=== PATIENT | female | born 1995 | race Caucasian/White ===

== ENCOUNTER 2017-05-23 06:32 | Emergency (ER) | payer OTHER ==
[2017-05-23] MEDS ORDERED: DEXAMETHASONE SOD PHOS INJ 10 MG/1 ML VIAL IV ONE (07:07)
--- NOTE | 2017-05-23 07:13 | ER Document Report ---
ED Allergic Reaction - General Chief Complaint: Allergy Symptoms Stated Complaint: ALLERGIES Time Seen by Provider: 05/23/17 07:07 Information source: Patient, Friend Notes: Patient is a 21-year-old white female comes emergency room complaining of allergic reaction. Patient states that approximately 4 years ago she developed allergies to cats. She states today that she was at a friend's house who had a And the cat slept with her. She woke up this morning feeling a little short of breath and itchy around the eyes. She is complaining mostly of puffiness and itching of the eyes. She denies any rash. She denies any difficulty swallowing or talking. No swelling of the lips. Patient also states that when this occurs she has had in the past the steroid shot and Benadryl and the stomach pill, the Benadryl and stomach pill never worked for her. She states that the only thing that works is the steroid shot. Patient also states that when she has itchy puffy eyes if she does not get the steroids relatively soon then it turns into a full-blown allergic reaction and is much more difficult to get under control. - HPI Patient complains to provider of: Allergic reaction Onset: This morning Onset/Duration: Sudden, Worse Quality of pain: No pain Severity: Moderate Pain Level: 3 Identified cause: Yes Other exposure: Other - [place] Skin rash / itching: Facial Swelling: Face Trouble swallowing / speaking: Mild Associated symptoms: None Similar symptoms previously: Yes Recently seen / treated by doctor: No - Related Data Allergies/Adverse Reactions: No Known Allergies Allergy (Unverified 05/23/17 06:36) Past Medical History - General Information source: Patient, Friend Last Menstrual Period: May 04, 2017 - Social History Smoking Status: Current Some Day Smoker Cigarette use (# per day): Yes - Occasional Chew tobacco use (# tins/day): No Smoking Education Provided: Yes Frequency of alcohol use: Occasional Drug Abuse: None Lives with: Family Family History: Reviewed & Not Pertinent Patient has suicidal ideation: No Patient has homicidal ideation: No Renal/ Medical History: Denies: Hx Peritoneal Dialysis Review of Systems - Review of Systems Constitutional: No symptoms reported EENT: Other - Puffiness around eyes Cardiovascular: No symptoms reported Respiratory: No symptoms reported, See HPI Gastrointestinal: No symptoms reported Genitourinary: No symptoms reported Female Genitourinary: No symptoms reported Musculoskeletal: No symptoms reported Skin: No symptoms reported Hematologic/Lymphatic: No symptoms reported Neurological/Psychological: No symptoms reported -: Yes All other systems reviewed and negative Physical Exam - Vital signs Vitals: Temp Pulse Resp BP Pulse Ox 98.5 F 85 14 126/80 H 100 05/23/17 06:42 05/23/17 06:42 05/23/17 06:42 05/23/17 06:42 05/23/17 06:42 Interpretation: Normal - General General appearance: Appears well - HEENT Head: Normocephalic, Atraumatic Eyes: Periorbital edema Conjunctiva: Injected Cornea: Normal Extraocular movements intact: Yes Eyelashes: Normal Pupils: PERRL External canal: Normal Tympanic membrane: Normal Nasal: Normal Mouth/Lips: Normal. No: Angioedema, Caries, Dental fracture, Laceration, Lesions, Other Mucous membranes: Normal, Moist Pharynx: Normal, Other - Examination had an upper airway showed nasal mucosa to be mildly erythematous and edematous with bilateral nasal congestion noted slight amount of rhinorrhea bilaterally noted as well. Examination of the facial features show patient has some puffiness under the eyes and the lower lids. Slight swelling of the upper lids. Vision is unaffected at this time. Examination of the oral cavity shows posterior pharynx to be normal in appearance no erythema no angioedema of the tongue or lips noted. Airways patent.. No: Blood in hypopharynx, Erythema, Exudate, Peritonsillar abscess, Post nasal drainage, Retropharyngeal abscess, Tonsillar hypertrophy, Uvular edema, Potential airway comprom. Neck: Normal - Respiratory Respiratory status: No respiratory distress Chest status: Nontender Breath sounds: Normal, Other - Examination of the lungs show patient has bilateral breath sounds breath sounds are increased and clear to auscultation. Chest palpation: Normal - Cardiovascular Rhythm: Regular Heart sounds: Normal auscultation Murmur: No - Extremities General upper extremity: Normal inspection, Normal ROM General lower extremity: Normal inspection, Normal ROM - Neurological Neuro grossly intact: Yes Cognition: Normal Orientation: AAOx4 [place] Coma Scale Eye Opening: Spontaneous [place] Coma Scale Verbal: Oriented Pritesh Coma Scale Motor: Obeys Commands Pritesh Coma Scale Total: 15 Speech: Normal - Skin Skin Temperature: Warm Skin Moisture: Dry Skin Color: Normal, [place] Skin irregularity: negative: Abscess, Decubitus ulcer, Erythema, Laceration, Lesion, Plaque, Rash, Tender indurated area, other Course - Vital Signs Vital signs: Temp Pulse Resp BP Pulse Ox 98.5 F 85 14 126/80 H 100 05/23/17 06:42 05/23/17 06:42 05/23/17 06:42 05/23/17 06:42 05/23/17 06:42 - Transfer of Care Notes: 05/23/17 07:19 As stated earlier patient tells me that the only thing that works on this allergy before progresses is the Decadron shot. I have also informed her she can use Opcon-A antihistamine eyedrops [id number] which she says she is familiar with. I also suggested the patient that she start taking an antihistamine such as Zyrtec daily or Claritin. I have also informed her to return to ER if she has any concerns or problems. Discharge - Discharge Clinical Impression: Cat allergy due to both airborne and skin contact Allergic reaction Qualifiers: Encounter type: initial encounter Qualified Code(s): T78.40XA - Allergy, unspecified, initial encounter Condition: Good Instructions: Acute Allergic Reaction ([facility]) Additional Instructions: The steroid shot should take care of the symptomatology of your contact with cats. However if you are going to remain around cats for the next few days highly suggest she start taking Zyrtec/Claritin as directed on the package over- the-counter. Should you have any concerns or problems if he becomes short of breath or have any swelling or difficulty swallowing return to ER for a recheck. You may also take [id number] Zantac which is a stomach pill but it blocks a histamine release which causes an allergic reaction. This may help also to detour prolonged reactions. Forms: Elevated Blood Pressure, Smoking Cessation Education
[2017-05-23] MEDS ORDERED: DEXAMETHASONE SOD PHOS INJ 10 MG/1 ML VIAL IM ONE (07:45)
[2017-05-23 08:02] VITALS: BP 128/80
== END 2017-05-23 08:03 | disposition home or self-care (01) ==
LOC: ER 06:32
DX: J30.81 Allergic rhinitis due to animal (cat) (dog) hair and dander (principal); T78.40XA Allergy, unspecified, initial encounter; R06.02 Shortness of breath; F17.210 Nicotine dependence, cigarettes, uncomplicated
CPT/HCPCS: 99283; 96372; J1100